=== PATIENT | female | born 1985 | race Caucasian/White ===

== ENCOUNTER 2018-06-17 11:23 | Emergency (ER) | payer OTHER ==
[2018-06-17 12:39] LABS: ADD UMIC YES; UR ASCORBIC ACID NEGATIVE (NEGATIVE); UR BILIRUBIN (Dip) NEGATIVE (NEGATIVE); UR BLOOD (Dip) NEGATIVE (NEGATIVE); UR CLARITY CLOUDY (CLEAR); UR COLOR YELLOW (YELLOW); UR GLUCOSE (Dip) NEGATIVE (NEGATIVE); UR KETONES (Dip) NEGATIVE (NEGATIVE); UR LEUKOCYTE ESTERASE (Dip) 3+ Leu/ul (NEGATIVE); UR MUCUS FEW /HPF (NONE SEEN); UR NITRITE (Dip) NEGATIVE (NEGATIVE); UR RBC 4 /HPF (0-5); UR SQUAMOUS EPITHELIAL CELL FEW /HPF (FEW); UR TOTAL PROTEIN (Dip) NEGATIVE (NEGATIVE); UR UROBILINOGEN (Dip) NEGATIVE (NEGATIVE); UR WBC 5 /HPF (0-5)
[2018-06-17] MEDS ORDERED: DEXAMETHASONE (1 MG/ML PO SYG) PO (13:15)
[2018-06-17] MEDS: AZITHROMYCIN 500 MG TAB PO (13:23)
[2018-06-17] MEDS: HYDROCODONE/APAP (5/325) TAB PO (13:23)
[2018-06-17] MEDS: CEFTRIAXONE 1 GM INJ IM (13:24)
[2018-06-17] MEDS: KETOROLAC 60 MG INJ IM (13:24)
[2018-06-17] MEDS: LIDOCAINE 1% (MPF) 5 ML VIAL INFIL (13:24)
[2018-06-17] MEDS: DEXAMETHASONE 10 MG/ML 1 ML INJ IM (14:03)
[2018-06-17] MEDS: ONDANSETRON (ODT) 4 MG TAB ODT (14:42)
[2018-06-17] MEDS: FLUCONAZOLE 150 MG TAB PO (14:58)
== END 2018-06-17 16:17 | disposition home or self-care (01) ==
LOC: FTE 16:17
DX: B37.3 Candidiasis of vulva and vagina (principal); N76.0 Acute vaginitis; N39.0 Urinary tract infection, site not specified; N73.9 Female pelvic inflammatory disease, unspecified; R42 Dizziness and giddiness
CPT/HCPCS: 76830; 76856; 81001; 81025; 87210; 87591; 93005; 96372; 99285-25